=== PATIENT | female | born 1985 | race Asian ===

== ENCOUNTER 2016-07-17 00:25 | Inpatient (IN) | payer SELFPAY ==
[~2016-07-17] VITALS: Ht 165.1 cm; Wt 74.8 kg
[2016-07-17] MEDS ORDERED: LACTATED RINGERS 1,000 ML IV SCH (01:02)
[2016-07-17] MEDS ORDERED: IRON65TA11 PO (01:02)
[2016-07-17] MEDS ORDERED: METHYLERGONOVINE 0.2 MG/ML AMP IM PRN ×2 (01:05→06:40)
[2016-07-17] MEDS ORDERED: CARBOPROST 250 MCG/ML AMP IM PRN (01:05)
[2016-07-17 01:28] LABS: BASOPHILS # (AUTO) 0.1 K/uL (0.00-0.22); BASOPHILS % (AUTO) 0.8 % (0.0-2.0); EOSINOPHILS # (AUTO) 0.1 K/uL (0-0.4); EOSINOPHILS % (AUTO) 1.6 % (0.0-4.0); HEMATOCRIT 36.4 % (36-48); LYMPHOCYTES # (AUTO) 2.2 K/uL (2.5-16.5); LYMPHOCYTES % (AUTO) 29.1 % (20.5-51.1); MEAN CORPUSCULAR HEMOGLOBIN 33 pg (27-31); MEAN CORPUSCULAR HGB CONC 33 g/dL (33-37); MEAN CORPUSCULAR VOLUME 99 fL (80-94); MONOCYTES # (AUTO) 0.6 K/uL (0.8-1.0); MONOCYTES % (AUTO) 7.5 % (1.7-9.3); NEUTROPHILS # (AUTO) 4.4 K/uL (1.8-7.7); PLATELET COUNT (AUTO) 213 K/uL (140-450); RED BLOOD CELL COUNT(AUTO) 3.66 MIL/uL (4.20-5.40); RED CELL DISTRIBUTION WIDTH 16.6 % (11.6-13.7); WHITE BLOOD COUNT (AUTO) 7.4 K/uL (4.8-10.8)
[2016-07-17 01:53] LABS: APPEARANCE,URINE CLEAR (CLEAR); BILIRUBIN,URINE NEGATIVE (NEGATIVE); BLOOD, URINE NEGATIVE (NEGATIVE); COLOR,URINE YELLOW (YELLOW); LEUKOCYTE ESTERASE ,URINE NEGATIVE (NEGATIVE); NITRITE, URINE NEGATIVE (NEGATIVE); PH,URINE 5.5 (5.0-9.0); PROTEIN,URINE NEGATIVE (NEGATIVE); UGLUCOSE NEGATIVE (NEGATIVE); UROBILINOGEN,URINE 0.2 EU/dL (0.2 - 1)
[2016-07-17 02:02] LABS: RBC,URINE 0-5 (RARE) /HPF (0-5)
[2016-07-17 02:03] LABS: BACTERIA,URINE 2+ /HPF (None Seen)
[2016-07-17] MEDS ORDERED: ceFAZolin 1,000 MG VIAL ONE (05:43)
[2016-07-17] MEDS ORDERED: TRIAMCINOLONE 40 MG/ML 5ML VIAL ONE (05:49)
[2016-07-17] MEDS ORDERED: METHYLERGONOVINE 0.2 MG/ML AMP ONE (05:50)
[2016-07-17] MEDS ORDERED: OXYTOCIN 10 UNITS/ML VIAL ONE ×3 (05:50→06:54)
[2016-07-17] MEDS ORDERED: BUPIVACAINE-MPF 0.75% 10 ML VIAL INJ ONE (05:55)
[2016-07-17] MEDS ORDERED: ONDANSETRON 4 MG/2 ML VIAL ONE (05:55)
[2016-07-17] MEDS ORDERED: MORPHINE PRES FREE 10 MG/10 ML AMP IV ONE (06:02)
[2016-07-17] MEDS ORDERED: MIDAZOLAM 2 MG/2 ML VIAL ONE (06:02)
[2016-07-17] MEDS ORDERED: diphenhydrAMINE 50 MG/ML VIAL IVP PRN ×2 (06:30)
[2016-07-17] MEDS ORDERED: OXYTOCIN 20 UNITS/LR PREMIX 1,000 ML IV SCH (06:30)
[2016-07-17] MEDS ORDERED: NALOXONE 0.4 MG/ML VIAL IVP PRN ×3 (06:30)
[2016-07-17] MEDS ORDERED: MEPERIDINE 25 MG/ML SYR IVP PRN (06:30)
[2016-07-17] MEDS ORDERED: HYDROmorphone 1 MG/ML AMP IVP PRN (06:30)
[2016-07-17] MEDS ORDERED: ONDANSETRON 4 MG/2 ML VIAL IVP PRN ×2 (06:30)
[2016-07-17] MEDS ORDERED: NALBUPHINE 10 MG/ML AMP IVP PRN (06:30)
[2016-07-17] MEDS ORDERED: HYDROcodone/APAP 5/325 MG 1 TAB TAB PO PRN (06:40)
[2016-07-17] MEDS ORDERED: TRIMETHOBENZAMIDE 200 MG/2 ML SYR IM PRN (06:40)
[2016-07-17] MEDS ORDERED: MEASLES, MUMPS, AND RUBELLA 1 VIAL SQVAC PRN (06:40)
[2016-07-17] MEDS ORDERED: oxyCODONE/APAP 5/325 MG 1 TAB TAB PO PRN (06:40)
[2016-07-17] MEDS ORDERED: IBUPROFEN 800 MG TAB PO PRN (06:40)
[2016-07-17] MEDS ORDERED: TEMAZEPAM 15 MG CAP PO PRN (06:40)
[2016-07-17] MEDS ORDERED: OXYTOCIN 20 UNITS/LR PREMIX 1,000 ML IV ONE (07:22)
--- NOTE | 2016-07-17 08:14 | NUR ---
PATIENT HAS BEEN SCREENED AND CATEGORIZED LOW NUTRITION RISK. PATIENT WILL BE SEEN WITHIN 7 DAYS OF ADMISSION. 07/23/[address]
[2016-07-17] MEDS: OXYTOCIN 20 UNITS/LR PREMIX 1,000 ML IV SCH ×3 (09:00→23:51)
[2016-07-17] MEDS: KETOROLAC 30 MG/ML VIAL IM/IVP SCH ×3 (11:57→23:54)
[2016-07-17] MEDS: DOCUSATE SOD/SENNA 50/8.6 MG 1 TAB PO SCH (20:53)
[2016-07-18 06:18] LABS: BASOPHILS # (AUTO) 0.1 K/uL (0.00-0.22); BASOPHILS % (AUTO) 0.7 % (0.0-2.0); EOSINOPHILS # (AUTO) 0.1 K/uL (0-0.4); EOSINOPHILS % (AUTO) 0.6 % (0.0-4.0); HEMATOCRIT 37.7 % (36-48); HEMOGLOBIN 12.5 g/dL (12.0-16.0); LYMPHOCYTES # (AUTO) 1.6 K/uL (2.5-16.5); MEAN CORPUSCULAR HEMOGLOBIN 33 pg (27-31); MEAN CORPUSCULAR HGB CONC 33 g/dL (33-37); MEAN CORPUSCULAR VOLUME 99 fL (80-94); MONOCYTES # (AUTO) 0.4 K/uL (0.8-1.0); MONOCYTES % (AUTO) 3.5 % (1.7-9.3); NEUTROPHILS # (AUTO) 8.6 K/uL (1.8-7.7); NEUTROPHILS % (AUTO) 80.2 % (42.2-75.2); PLATELET COUNT (AUTO) 206 K/uL (140-450); RED BLOOD CELL COUNT(AUTO) 3.79 MIL/uL (4.20-5.40); RED CELL DISTRIBUTION WIDTH 16.1 % (11.6-13.7); WHITE BLOOD COUNT (AUTO) 10.8 K/uL (4.8-10.8)
[2016-07-18 09:08] LABS: HEPATITIS B SURFACE ANTIGEN Negative (Negative)
[2016-07-18] MEDS: SIMETHICONE 80 MG TAB.CHEW PO PRN ×2 (10:09→13:10)
[2016-07-20] MEDS: DOCUSATE SOD/SENNA 50/8.6 MG 1 TAB PO SCH (21:00)
== END 2016-07-22 11:58 | disposition home or self-care (01) | DRG 766 ==
LOC: MLD 00:25 → MFCC 07:32
PROVIDERS: ADMIT Obstetrics & Gynecology; ATTEND Obstetrics & Gynecology
PROC: 10D00Z1 Extraction of Products of Conception, Low, Open Approach (ICD-10-PCS; principal; 2016-07-17 06:00)
DX: O34.211 Maternal care for low transverse scar from previous cesarean delivery (principal); O74.5 Spinal and epidural anesthesia-induced headache during labor and delivery; Z37.0 Single live birth; Z3A.39 39 weeks gestation of pregnancy; Z28.21 Immunization not carried out because of patient refusal; O09.293 Supervision of pregnancy with other poor reproductive or obstetric history, third trimester
CPT/HCPCS: 36415; 81001; 85025; 86592; 86762; 86886; 86900; 86901; 87086; 87340; 90715; J0690; J2210; J2250; J2270; J2405; J2590; J3301; J3490; J7120